=== PATIENT | female | born 1975 | race Caucasian/White ===

== ENCOUNTER 2017-02-25 19:30 | Emergency (ER) | payer BC, MEDICARE ==
[2017-02-25 20:07] VITALS: PULSE 122; O2SAT 97
[2017-02-25 20:15] LABS: Amphetamine,Urine NEG. (NEGATIVE); Barbiturate,Urine NEG. (NEGATIVE); Benzodiazepine,Urine NEG. (NEGATIVE); Cocaine,Urine NEG. (NEGATIVE); Methadone,Urine NEG. (NEGATIVE); Opiate,Urine NEG. (NEGATIVE); PCP,Urine NEG. (NEGATIVE); THC,Urine NEG. (NEGATIVE)
[2017-02-25 20:27] LABS: BASOPHIL % 0.3 % (0.0-0.4); Basophil (Absolute #) 0.02 (0-0.4); Eosinophil % 0.9 % (0.00-5.0); Eosinophil (Absolute #) 0.07 (0-0.5); Granulocyte Absolute (ANC) 4.76 (1.4-6.9); Granulocytes % 60.5 % (36.0-66.0); Hematocrit 44.3 % (35-47); Hemoglobin 14.6 gm/dl (12.0-16.0); Mean Cell Volume 87.9 fl (78-100); Mean Platelet Volume 10.2 fl (6-9.5); Monocyte (Absolute #) 0.81 (0.0-1.3); Monocytes % 10.3 % (0.0-12.0); Platelet Count 290 K/mm3 (150-450); Red Blood Count 5.04 M/mm3 (4.1-5.4); Red Cell Distribution Width 14.4 % (11.5-14.0); White Blood Count 7.9 K/mm3 (4.0-10.5)
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
[2017-02-25 20:58] LABS: ALBUMIN 4.5 g/dL (3.4-5.0); ALKALINE PHOSPHATASE 47 U/L (46-116); ANION GAP 12.8 MEQ/L (5-15); BLOOD UREA NITROGEN 30 mg/dL (9-20); CHLORIDE 103 mEq/L (98-107); Calcium 9.7 mg/dL (8.5-10.1); Carbon Dioxide 25.6 mEq/L (21-32); Creatinine 1 1.59 mg/dl (0.55-1.30); EST GLOMERULAR FILTRATION RATE 38 ML/MIN; ETHYL ALCOHOL < 0.010 % (0.00-0.01); Glucose 111 MG/DL (70-110); Potassium 3.5 mEq/L (3.5-5.1); SGOT/AST 20 U/L (15-37); SGPT/ALT 27 U/L (12-78); SODIUM 138 mEq/L (136-145); Total Protein 8.3 gm/dL (6.4-8.2)
[2017-02-25 20:59] LABS: ACETAMINOPHEN < 2.0 ug/ml (10-30)
[2017-02-25 22:14] VITALS: BP 135/86
== END 2017-02-25 22:19 | disposition home or self-care (01) ==
LOC: ED 19:30
DX: F43.20 Adjustment disorder, unspecified (principal); F20.9 Schizophrenia, unspecified; N28.9 Disorder of kidney and ureter, unspecified; Z72.0 Tobacco use; F41.8 Other specified anxiety disorders; F31.9 Bipolar disorder, unspecified; E03.9 Hypothyroidism, unspecified; K21.9 Gastro-esophageal reflux disease without esophagitis
CPT/HCPCS: 36415; 80053; 80307; 84703; 85025; 99284; G0481

== ENCOUNTER 2017-05-15 11:11 | Observation (INO) | payer MEDICARE ==
[2017-05-15] MEDS ORDERED: TYLENOL 325 MG PO PRN (12:14)
[2017-05-15] MEDS ORDERED: MORPHINE SULFATE 2 MG INJ IV PRN (12:14)
[2017-05-15] MEDS ORDERED: Sodium Chloride 0.9% 1000 ML 1,000 ML IV STA (12:14)
--- NOTE | 2017-05-15 12:14 | PCM.HP.ADD ---
Addendum to History & Physical - History & Physical Addendum Addendum to History & Physical: This certifies that the History & Physical in the electronic chart reflects the current health status of the patient. If there are changes in the H&P these changes/exceptions are listed as follows.
[2017-05-15] MEDS ORDERED: LASIX 20 MG PO PRN (13:17)
[2017-05-15 13:24] LABS: Basophil (Absolute #) 0 (0-0.4); Eosinophil (Absolute #) 0.05 (0-0.5); Granulocyte Absolute (ANC) 3.66 (1.4-6.9); Granulocytes % 69.5 % (36.0-66.0); Hematocrit 46.7 % (35-47); Hemoglobin 15.5 gm/dl (12.0-16.0); Lymphocyte (Absolute #) 1.06 (1.0-4.6); Lymphocytes % 20.2 % (24.0-44.0); Mean Cell Volume 88.8 fl (78-100); Mean Corpuscular Hemoglobin 29.5 pg (26-32); Mean Corpuscular Hgb Concent. 33.2 g/dl (32-36); Mean Platelet Volume 10.1 fl (6-9.5); Monocyte (Absolute #) 0.49 (0.0-1.3); Monocytes % 9.3 % (0.0-12.0); Platelet Count 274 K/mm3 (150-450); Red Blood Count 5.26 M/mm3 (4.1-5.4); Red Cell Distribution Width 14.6 % (11.5-14.0); White Blood Count 5.3 K/mm3 (4.0-10.5)
[2017-05-15] MEDS ORDERED: ATARAX 25 MG PO PRN (13:25)
[2017-05-15] MEDS ORDERED: MEDICATION INTERVENTION PO SCH (13:30)
[2017-05-15 13:51] LABS: ALBUMIN 4.7 g/dL (3.5-5.0); BILIRUBIN,TOTAL 0.4 mg/dL (0.2-1.3); Calcium 10.2 mg/dL (8.4-10.2); Creatinine 1 1.1 mg/dL (0.52-1.04); Total Protein 7.7 g/dL (6.3-8.2)
[2017-05-15] MEDS: Zofran 4 MG/2 ML VIAL IV PRN (13:54)
[2017-05-15 13:57] LABS: Appearance CLEAR (CLEAR); Bilirubin NEGATIVE (NEGATIVE); Glucose NEGATIVE (NEGATIVE); Ketones NEGATIVE (NEGATIVE); Leukocyte Esterase TRACE (NEGATIVE); Nitrite NEGATIVE (NEGATIVE); Protein,Urine Dip NEGATIVE (Negative); Urobilinogen NORMAL mg/dL (0-1)
[2017-05-15 13:58] LABS: Bacteria FEW /HPF (NEGATIVE); Epithelial Cells FEW /HPF (FEW); WBC 0-2 /HPF (0-5)
[2017-05-15] MEDS: lamICTAL 100MG TABLET PO SCH (16:29)
--- NOTE | 2017-05-15 16:42 | XRAY ---
Indication: Right upper quadrant pain. Two-dimensional gallbladder sonogram performed. Comparison: October 19, 2014. Gallbladder normally distended without gallstones, wall thickening, or pericholecystic fluid. Common bile duct measures 5.3 mm. No intrahepatic biliary distention. Remaining visualized portions of the liver, pancreas, and right kidney appears sonographically unremarkable. Right kidney measures 10.8 cm in length. No ascites. Impression: Stable negative gallbladder sonogram.
--- NOTE | 2017-05-15 16:45 | XRAY ---
Indication: Pain. Two-dimensional transabdominal pelvic ultrasound was performed. Comparison: None Urinary bladder not fully distended producing suboptimal acoustic window. Uterus is anteverted measuring 9.9 x 5.3 x 5.3 cm. No focal solid/cystic mass. Endometrial stripe is thickened measuring 1.35 cm. No endometrial mass or fluid collection. Right ovary measures 3.5 x 2.0 x 2.3 cm and the left measures 3.6 x 2.6 x 3.5 cm. Normal perfusion bilaterally. 2.4 cm left adnexal cystic mass adjacent to the uterine fundus, possible paraovarian cyst. No solid adnexal mass or free fluid. Impression: 1. 2.4 cm left parovarian cyst. 2. Thickened endometrial stripe that should be correlated with patient's menstrual cycle. 3. Remaining transabdominal pelvic sonogram is negative.
[2017-05-15] MEDS: Protonix 40MG Tablet PO SCH (16:50)
[2017-05-15] MEDS: VITAMIN D PO SCH (16:51)
[2017-05-15] MEDS ORDERED: QUETIAPINE FUMARATE 800 MG PO SCH (22:00)
[2017-05-15] MEDS ORDERED: SYNTHROID 125 MCG PO SCH (22:00)
[2017-05-15] MEDS ORDERED: Tricor 145 MG PO SCH (22:00)
[2017-05-15] MEDS ORDERED: lamICTAL 100MG TABLET PO SCH (22:00)
[2017-05-15] MEDS ORDERED: PATIENT OWN MEDICATION PO SCH (22:00)
[2017-05-15] MEDS ORDERED: SYNTHROID 100 MCG PO SCH (22:00)
[2017-05-16] MEDS: Zofran 4 MG/2 ML VIAL IV PRN ×2 (04:06→10:44)
--- NOTE | 2017-05-16 08:43 | XRAY ---
Indication: Nausea and vomiting 2 weeks. Intermittent constipation and diarrhea. Multiple contiguous axial images obtained through the abdomen and pelvis using 80 cc Isovue 370 contrast. Oral contrast also given. Comparison: None Lung bases demonstrates minimal bibasilar atelectasis/scarring. No infiltrate or effusion. Heart is not enlarged. Stomach is distended with contrast with little contrast in the duodenum. Noncontrasted bowel loops appear nonobstructed. Normal appendix. 2.3 cm left ovary cyst with small pelvic free fluid presumed from a ruptured/leaking cyst. No free air. 1 cm right mid renal cyst. Remaining liver, gallbladder, pancreas, spleen, adrenal glands, kidneys, ureters, bladder, uterus, and aorta appear unremarkable. No pathologic retroperitoneal lymphadenopathy. Osseous structures intact. Impression: 1. 2.3 similar left ovary cyst. Small free fluid presumed physiologic from rupture/leaking cyst. 2. 1 cm right renal cyst. 3. Remaining CT abdomen/pelvis with contrast exam is negative. Comment: Preliminary interpretation was made by [facility]. No discrepancy. CT DI 23.63
[2017-05-16] MEDS: Protonix 40MG Tablet PO SCH (09:06)
[2017-05-16] MEDS: lamICTAL 100MG TABLET PO SCH (09:06)
[2017-05-16] MEDS: VITAMIN D PO SCH (09:06)
[2017-05-16] MEDS ORDERED: NON-FORMULARY ITEM (Omeprazole 20 Mg [Prilosec 20 Mg] 40 MG) PO SCH (10:00)
[2017-05-16] MEDS ORDERED: Sodium Chloride 0.9% 10 ML FLUSH Syringe IV PRN (10:16)
[2017-05-16 11:40] VITALS: BP 107/64; PULSE 112; O2SAT 98
--- NOTE | 2017-05-16 11:47 | PCM.DS ---
Discharge Summary Date of Admission: 05/15/17 11:17 Admitting Physician: KARMEN NAVARRO Primary Care Provider: KARMEN NAVARRO Allergies Allergies Penicillins Allergy (Verified 05/15/17 11:42) Vomiting Hospital Summary - Hospital Course Hospital Course: Chief Complaint Diagnosis abdominal pain Allergies Allergy/AdvReac Type Severity Reaction Status Date / Time Penicillins Allergy Vomiting Verified 05/15/17 11:42 Vital Signs (Last 24 hours) Temp Pulse Resp BP Pulse Ox 05/16/17 11:39 98.2 F 112 H 18 107/64 98 05/16/17 07:21 98.2 F 101 H 18 87/57 91 L 05/16/17 04:00 97.9 F 92 H 18 111/64 97 05/16/17 00:00 97.9 F 99 H 17 104/64 97 05/15/17 20:00 98.1 F 92 H 18 113/67 96 05/15/17 16:00 98.4 F 100 H 18 117/72 100 05/15/17 12:23 98.8 F 114 H 18 124/70 99 05/15/17 11:55 98.8 F 114 H 18 124/70 99 Home Medications Medication Instructions Recorded Confirmed Last Taken Type Cholecalciferol (Vitamin D3) 5,000 unit PO DAILY 05/15/17 05/15/17 05/14/17 History [Vitamin D] Fenofibrate Nanocrystallized 145 mg PO QHS 05/15/17 05/15/17 05/14/17 History [Fenofibrate] Furosemide 20 mg [Lasix 20 20 mg PO DAILY PRN PRN 05/15/17 05/15/17 05/12/17 History mg] Hydroxyzine Pamoate [Hydroxyzine 50 mg PO BID PRN PRN 05/15/17 05/15/17 History Pamoate] Lamotrigine 100 mg [lamICTAL 150 mg PO QHS 05/15/17 05/15/17 05/14/17 History 100MG TABLET] Lamotrigine 100 mg [lamICTAL 200 mg PO QAM 05/15/17 05/15/17 05/14/17 History 100MG TABLET] Levothyroxine Sodium 100 Mcg 125 mcg PO QHS 05/15/17 05/15/17 05/14/17 History [Synthroid 100 Mcg] Omeprazole 20 MG [Prilosec 20 mg] 40 mg PO QAM 05/15/17 05/15/17 05/14/17 History Quetiapine Fumarate [Seroquel Xr] 800 mg PO QHS 05/15/17 05/15/17 05/14/17 History Current Medications Generic Name Dose Route Start Last Admin Trade Name Freq PRN Reason Stop Dose Admin Acetaminophen 325 mg 05/15/17 12:14 05/16/17 04:15 Tylenol 325 Mg PO 06/14/17 12:13 325 mg Q4H PRN PRN Administration PAIN, FEVER, HEADACHE Cholecalciferol 5,000 unit 05/15/17 14:00 05/16/17 09:06 Vitamin D PO 06/14/17 13:59 5,000 unit DAILY ROYCE Administration Fenofibrate 145 mg 05/15/17 22:00 05/15/17 20:25 Tricor 145 Mg PO 06/14/17 21:59 145 mg QHS ROYCE Administration Furosemide 20 mg 05/15/17 13:17 Lasix 20 Mg PO 06/14/17 13:16 DAILY PRN PRN swelling Hydroxyzine HCl 50 mg 05/15/17 13:25 05/15/17 20:26 Atarax 25 Mg PO 06/14/17 13:24 50 mg BID PRN PRN Administration ANXIETY Lamotrigine 150 mg 05/15/17 22:00 05/15/17 20:23 Lamictal 100mg Tablet PO 06/14/17 21:59 150 mg QHS ROYCE Administration Lamotrigine 200 mg 05/15/17 14:00 05/16/17 09:06 Lamictal 100mg Tablet PO 06/14/17 13:59 200 mg QAM ROYCE Administration Levothyroxine Sodium 125 mcg 05/15/17 22:00 05/15/17 20:24 Synthroid 125 Mcg PO 06/14/17 21:59 125 mcg HS ROYCE Administration Morphine Sulfate 2 mg 05/15/17 12:14 05/16/17 10:43 Morphine Sulfate 2 Mg Inj IV 05/20/17 12:13 2 mg Q2H PRN PRN Administration PAIN Ondansetron HCl 4 mg 05/15/17 12:14 05/16/17 10:44 Zofran 4 Mg/2 Ml Vial IV 06/14/17 12:13 4 mg Q4H PRN PRN Administration NAUSEA/VOMITING Pantoprazole Sodium 40 mg 05/15/17 14:00 05/16/17 09:06 Protonix 40mg Tablet PO 06/14/17 13:59 40 mg QAM ROYCE Administration Quetiapine Er 400mg 2 each 05/15/17 22:00 05/15/17 20:24 Tablet PO 06/14/17 21:59 2 each QPM ROYCE Administration Sodium Chloride 10 ml 05/16/17 14:00 05/16/17 11:06 Sodium Chloride 0.9% 10 Ml Flush Syringe IV 06/15/17 13:59 10 ml Q8HT ROYCE Administration Sodium Chloride 10 ml 05/16/17 10:16 Sodium Chloride 0.9% 10 Ml Flush Syringe IV 06/15/17 10:15 PRN PRN FLUSH Discontinued Medications Generic Name Dose Route Start Last Admin Trade Name Freq PRN Reason Stop Dose Admin Sodium Chloride 1,000 mls @ 999 mls/hr 05/15/17 12:14 05/15/17 13:54 Sodium Chloride 0.9% 1000 Ml IV 05/15/17 13:14 999 mls/hr .Q1H1M STA Administration Intake & Output (Last 24 hours) 05/13/17 05/14/17 05/15/17 05/16/17 11:59 11:59 11:59 11:59 Intake Total 2060 Output Total 100 Balance 1960 Weight 90.1 kg Laboratory Results (Last 24 hours) 05/15/17 05/15/17 05/15/17 13:00 13:00 13:00 WBC 5.3 RBC 5.26 Hgb 15.5 Hct 46.7 MCV 88.8 MCH 29.5 MCHC 33.2 RDW 14.6 H Plt Count 274 MPV 10.1 H Gran % 69.5 H Eos # (Auto) 0.05 Absolute Lymphs (auto) 1.06 Absolute Monos (auto) 0.49 Lymphocytes % 20.2 L Monocytes % 9.3 Eosinophils % 1.0 Basophils % 0.0 Absolute Granulocytes 3.66 Basophils # 0 Sodium 142 Potassium 4.0 Chloride 104 Carbon Dioxide 24 Anion Gap 18.0 H BUN 23 H Creatinine 1.10 H Estimated GFR 58.2 Glucose 98 Lactic Acid 0.8 Calcium 10.2 Total Bilirubin 0.40 AST 37 H ALT 34 Alkaline Phosphatase 32 L Serum Total Protein 7.7 Albumin 4.7 Amylase 71 Lipase 60 Ur Collection Type Urine Color Urine Appearance Urine pH Ur Specific [place] Urine Protein Urine Ketones Urine Blood Urine Nitrite Urine Bilirubin Urine Urobilinogen Ur Leukocyte Esterase Urine Microscopic RBC Urine Microscopic WBC Ur Epithelial Cells Urine Bacteria Urine Glucose Specimen Received 05/15/17 12:18 WBC RBC Hgb Hct MCV MCH MCHC RDW Plt Count MPV Gran % Eos # (Auto) Absolute Lymphs (auto) Absolute Monos (auto) Lymphocytes % Monocytes % Eosinophils % Basophils % Absolute Granulocytes Basophils # Sodium Potassium Chloride Carbon Dioxide Anion Gap BUN Creatinine Estimated GFR Glucose Lactic Acid Calcium Total Bilirubin AST ALT Alkaline Phosphatase Serum Total Protein Albumin Amylase Lipase Ur Collection Type CLEAN CATCH Urine Color YELLOW Urine Appearance CLEAR Urine pH 7.0 Ur Specific [place] 1.010 Urine Protein NEGATIVE Urine Ketones NEGATIVE Urine Blood 5-10 Urine Nitrite NEGATIVE Urine Bilirubin NEGATIVE Urine Urobilinogen NORMAL Ur Leukocyte Esterase TRACE Urine Microscopic RBC 0-2 Urine Microscopic WBC 0-2 Ur Epithelial Cells FEW Urine Bacteria FEW Urine Glucose NEGATIVE Specimen Received 05/15/17 1300 Orders (Last 24 hours) Category Date Time Status Up Ad Ani TOLERATED Activity 05/15/17 12:15 Active Code Status Order ROUTINE Care 05/15/17 12:[address] in Observation ROUTINE Care 05/15/17 12:14 Active NPO Diet 05/15/17 12:14 Completed Regular Diet Diet 05/15/17 Dinner Active ABDOMEN AND PELVIS W CONTRAST [CT] Routine Exams 05/15/17 18:11 Completed GALLBLADDER [US] Stat Exams 05/15/17 16:30 Completed PELVIC [US] Stat Exams 05/15/17 16:30 Completed AMYLASE Stat Lab 05/15/17 13:00 Completed CBC W DIFF Stat Lab 05/15/17 13:00 Completed CMP Stat Lab 05/15/17 13:00 Completed LIPASE Stat Lab 05/15/17 13:00 Completed Lactic Acid Stat Lab 05/15/17 13:00 Completed UA W/ MICROSCOPIC Stat Lab 05/15/17 12:18 Completed Acetaminophen 325 mg [Tylenol 325 mg] Med 05/15/17 12:14 Active 325 mg PO Q4H PRN PRN Cholecalciferol (Vitamin D3) [Vitamin D] Med 05/15/17 14:00 Active 5,000 unit PO DAILY Fenofibrate,Micronized 145 mg* [Tricor 145 MG] Med 05/15/17 22:00 Active 145 mg PO QHS Furosemide 20 mg [Lasix 20 mg] Med 05/15/17 13:17 Active 20 mg PO DAILY PRN PRN Hydroxyzine HCl 25 mg [Atarax 25 mg] Med 05/15/17 13:25 Active 50 mg PO BID PRN PRN Lamotrigine 100 mg [lamICTAL 100MG TABLET] Med 05/15/17 22:00 Active 150 mg PO QHS Lamotrigine 100 mg [lamICTAL 100MG TABLET] Med 05/15/17 14:00 Active 200 mg PO QAM Levothyroxine Sodium 125 Mcg [Synthroid 125 Mcg] Med 05/15/17 22:00 Active 125 mcg PO HS Medication Intervention Med 05/15/17 13:30 Discontinued 1 each PO .RN TO CHECK ON Morphine Sulfate 2 mg Inj Med 05/15/17 12:14 Active 2 mg IV Q2H PRN PRN NaCl 0.9% 10 ML FLUSH [Sodium Chloride 0.9% 10 ML FLUSH Med 05/16/17 10:16 Active Syringe] 10 ml IV PRN PRN NaCl 0.9% 10 ML FLUSH [Sodium Chloride 0.9% 10 ML FLUSH Med 05/16/17 14:00 Active Syringe] 10 ml IV Q8HT NaCl 0.9% 1000 ml [Sodium Chloride 0.9% 1000 ML] 1,000 Med 05/15/17 12:14 Discontinued ml IV 999 mls/hr Ondansetron HCl 4 mg/2 ml [Zofran 4 MG/2 ML VIAL] Med 05/15/17 12:14 Active 4 mg IV Q4H PRN PRN PANTOPRAZOLE 40 mg Tablet [Protonix 40MG Tablet] Med 05/15/17 14:00 Active 40 mg PO QAM Patient Own Med [Patient Own Medication] Med 05/15/17 22:00 Active 2 each PO QPM Patient Care Notes (Last 24 hours) 05/16/17 10:58 Nursing Note by Rossana Lino morphine and zofran given for abd pain and nausea (see APR). Initialized on 05/16/17 10:58 - END OF NOTE 05/16/17 09:41 Nursing Note by Rossana Lino see medsurg assessment, pt has had loose stool x 2 , incontinent x 1 in bed. pt denies other c/o at this time, pt made aware she has pain med available prn. Dr. Navarro will make rounds today. Addendum entered by Rossana Lino 05/16/17 09:47: pt has prn lasix order on APR, pt states she takes it about 3 times a week and took it on Sunday, denies need for it today, pt has slight ankle edama bilat. Initialized on 05/16/17 09:41 - END OF NOTE 05/15/17 20:25 Nursing Note by Jasmin Kwan Called results of CT abdomen, ultrasound pelvis, and ultrasound of gallbladder to Dr. Navarro. Regular diet order received. Initialized on 05/15/17 20:25 - END OF NOTE - Vitals & Intake/Output Vital Signs: Vital Signs Temperature 98.2 F 05/16/17 11:39 Pulse Rate 112 H 05/16/17 11:39 Respiratory Rate 18 05/16/17 11:39 Blood Pressure 107/64 05/16/17 11:39 O2 Sat by Pulse Oximetry 98 05/16/17 11:39 Intake & Output: Intake & Output 05/13/17 05/14/17 05/15/17 05/16/17 11:59 11:59 11:59 11:59 Intake Total 2059 Output Total 100 Balance 1960 Weight 90.1 kg - Lab Result Diagrams: 05/15/17 13:00 05/15/17 13:00 Lab Results-Last 24 Hrs: Lab Results-Last 24 Hours 05/15/17 05/15/17 05/15/17 Range/Units 12:18 13:00 13:00 WBC 5.3 (4.0-10.5) K/mm3 RBC 5.26 (4.1-5.4) M/mm3 Hgb 15.5 (12.0-16.0) gm/dl Hct 46.7 (35-47) % MCV 88.8 (78-100) fl MCH 29.5 (26-32) pg MCHC 33.2 (32-36) g/dl RDW 14.6 H (11.5-14.0) % Plt Count 274 (150-450) K/mm3 MPV 10.1 H (6-9.5) fl Gran % 69.5 H (36.0-66.0) % Eos # (Auto) 0.05 (0-0.5) Absolute Lymphs (auto) 1.06 (1.0-4.6) Absolute Monos (auto) 0.49 (0.0-1.3) Lymphocytes % 20.2 L (24.0-44.0) % Monocytes % 9.3 (0.0-12.0) % Eosinophils % 1.0 (0.00-5.0) % Basophils % 0.0 (0.0-0.4) % Absolute Granulocytes 3.66 (1.4-6.9) Basophils # 0 (0-0.4) Sodium (137-145) mmol/L Potassium (3.5-5.1) mmol/L Chloride (98-107) mmol/L Carbon Dioxide (22-30) mmol/L Anion Gap (5-15) MEQ/L BUN (7-17) mg/dL Creatinine (0.52-1.04) mg/dL Estimated GFR ML/MIN Glucose (74-106) mg/dL Lactic Acid 0.8 (0.4-2.0) Calcium (8.4-10.2) mg/dL Total Bilirubin (0.2-1.3) mg/dL AST (14-36) U/L ALT (0-35) U/L Alkaline Phosphatase (38-126) U/L Serum Total Protein (6.3-8.2) g/dL Albumin (3.5-5.0) g/dL Amylase (30-110) U/L Lipase (23-300) U/L Ur Collection Type CLEAN CATCH Urine Color YELLOW (YELLOW) Urine Appearance CLEAR (CLEAR) Urine pH 7.0 (5-6) Ur Specific [place] 1.010 (1.005-1.025) Urine Protein NEGATIVE (Negative) Urine Ketones NEGATIVE (NEGATIVE) Urine Blood 5-10 (0-5) Benja/ul Urine Nitrite NEGATIVE (NEGATIVE) Urine Bilirubin NEGATIVE (NEGATIVE) Urine Urobilinogen NORMAL (0-1) mg/dL Ur Leukocyte Esterase TRACE (NEGATIVE) Urine Microscopic RBC 0-2 (0-2) /HPF Urine Microscopic WBC 0-2 (0-5) /HPF Ur Epithelial Cells FEW (FEW) /HPF Urine Bacteria FEW (NEGATIVE) /HPF Urine Glucose NEGATIVE (NEGATIVE) mg/dL Specimen Received 05/15/17 1300 05/15/17 Range/Units 13:00 WBC (4.0-10.5) K/mm3 RBC (4.1-5.4) M/mm3 Hgb (12.0-16.0) gm/dl Hct (35-47) % MCV (78-100) fl MCH (26-32) pg MCHC (32-36) g/dl RDW (11.5-14.0) % Plt Count (150-450) K/mm3 MPV (6-9.5) fl Gran % (36.0-66.0) % Eos # (Auto) (0-0.5) Absolute Lymphs (auto) (1.0-4.6) Absolute Monos (auto) (0.0-1.3) Lymphocytes % (24.0-44.0) % Monocytes % (0.0-12.0) % Eosinophils % (0.00-5.0) % Basophils % (0.0-0.4) % Absolute Granulocytes (1.4-6.9) Basophils # (0-0.4) Sodium 142 (137-145) mmol/L Potassium 4.0 (3.5-5.1) mmol/L Chloride 104 (98-107) mmol/L Carbon Dioxide 24 (22-30) mmol/L Anion Gap 18.0 H (5-15) MEQ/L BUN 23 H (7-17) mg/dL Creatinine 1.10 H (0.52-1.04) mg/dL Estimated GFR 58.2 ML/MIN Glucose 98 (74-106) mg/dL Lactic Acid (0.4-2.0) Calcium 10.2 (8.4-10.2) mg/dL Total Bilirubin 0.40 (0.2-1.3) mg/dL AST 37 H (14-36) U/L ALT 34 (0-35) U/L Alkaline Phosphatase 32 L (38-126) U/L Serum Total Protein 7.7 (6.3-8.2) g/dL Albumin 4.7 (3.5-5.0) g/dL Amylase 71 (30-110) U/L Lipase 60 (23-300) U/L Ur Collection Type Urine Color (YELLOW) Urine Appearance (CLEAR) Urine pH (5-6) Ur Specific [place] (1.005-1.025) Urine Protein (Negative) Urine Ketones (NEGATIVE) Urine Blood (0-5) Benja/ul Urine Nitrite (NEGATIVE) Urine Bilirubin (NEGATIVE) Urine Urobilinogen (0-1) mg/dL Ur Leukocyte Esterase (NEGATIVE) Urine Microscopic RBC (0-2) /HPF Urine Microscopic WBC (0-5) /HPF Ur Epithelial Cells (FEW) /HPF Urine Bacteria (NEGATIVE) /HPF Urine Glucose (NEGATIVE) mg/dL Specimen Received - Radiology Exams Ordered Rad Exams-Entire Visit: Radiology Procedures Category Date Time Status ABDOMEN AND PELVIS W CONTRAST [CT] Routine Exams 05/15/17 18:11 Completed GALLBLADDER [US] Stat Exams 05/15/17 16:30 Completed PELVIC [US] Stat Exams 05/15/17 16:30 Completed Discharge Exam General Appearance: no apparent distress, alert Neurologic Exam: alert, oriented x 3, cooperative, normal mood/affect, nml cerebellar function, sensation nml, No motor deficits Skin Exam: normal color, warm, dry Eye Exam: PERRL, EOMI, eyes nml inspection Ears, Nose, Throat Exam: normal ENT inspection, pharynx normal, moist mucous membranes Neck Exam: normal inspection, non-tender, supple, full range of motion Respiratory Exam: normal breath sounds, lungs clear, No respiratory distress Cardiovascular Exam: regular rate/rhythm, normal heart sounds Gastrointestinal/Abdomen Exam: soft, No tenderness, No mass Extremity Exam: normal inspection, normal range of motion Back Exam: normal inspection, normal range of motion, No CVA tenderness, No vertebral tenderness Pelvic Exam: deferred Rectal Exam: deferred Final Diagnosis/Problem List - Final Discharge Diagnosis/Problem (1) Ovarian cyst rupture Current Visit: Yes Status: Acute Priority: High (2) Abdominal pain Current Visit: Yes Status: Resolved - Discharge Discharge Date: 05/16/17 Disposition: Home, Self-Care Condition: Stable Prescriptions: Continue Cholecalciferol (Vitamin D3) [Vitamin D] 5,000 unit PO DAILY Hydroxyzine Pamoate 50 mg PO BID PRN PRN PRN Reason: Anxiety Quetiapine Fumarate [Seroquel Xr] 800 mg PO QHS Lamotrigine 100 mg [lamICTAL 100MG TABLET] 200 mg PO QAM Lamotrigine 100 mg [lamICTAL 100MG TABLET] 150 mg PO QHS Furosemide 20 mg [Lasix 20 mg] 20 mg PO DAILY PRN PRN PRN Reason: swelling Fenofibrate Nanocrystallized [Fenofibrate] 145 mg PO QHS Omeprazole 20 MG [Prilosec 20 mg] 40 mg PO QAM Levothyroxine Sodium 100 Mcg [Synthroid 100 Mcg] 125 mcg PO QHS Follow up with: KARMEN NAVARRO MD [Primary Care Provider] - 1 Week KAELA REES [NON-STAFF PHY W/O PRIVILEGES] - 1 Week
[2017-05-16] MEDS ORDERED: Sodium Chloride 0.9% 10 ML FLUSH Syringe IV SCH (14:00)
== END 2017-05-16 13:15 | disposition home or self-care (01) ==
LOC: MED SURG 11:17
PROVIDERS: ADMIT General Practice; ATTEND General Practice
DX: N83.209 Unspecified ovarian cyst, unspecified side (principal); R10.9 Unspecified abdominal pain; F31.9 Bipolar disorder, unspecified; Z80.1 Family history of malignant neoplasm of trachea, bronchus and lung; Z72.0 Tobacco use
CPT/HCPCS: 36415; 74177; 76705; 76856; 80053; 81000; 82150; 83605; 83690; 85025; G0378; J2270; J2405; A9270-GY

== ENCOUNTER 2017-05-23 04:31 | Emergency (ER) | payer MEDICARE ==
[2017-05-23] MEDS ORDERED: Sodium Chloride 0.9% 1000 ML 1,000 ML IV STA ×2 (04:58→06:22)
[2017-05-23] MEDS ORDERED: EPINEPHRINE 1MG/ML AMP IM ONE (04:59)
[2017-05-23] MEDS ORDERED: solu-MEDROL 125 MG IV ONE (04:59)
[2017-05-23] MEDS ORDERED: Pepcid 20 MG VIAL IV ONE ×2 (04:59→05:04)
[2017-05-23] MEDS ORDERED: BENADRYL 50 MG/ML IV ONE (04:59)
[2017-05-23] MEDS ORDERED: BENADRYL 50 MG/ML ONE (05:04)
[2017-05-23] MEDS ORDERED: EPINEPHRINE 1MG/ML AMP ONE (05:05)
[2017-05-23] MEDS ORDERED: solu-MEDROL 125 MG ONE (05:05)
[2017-05-23] MEDS ORDERED: Sodium Chloride 0.9% 1000 ML 1,000 ML ONE ×2 (05:05→06:15)
--- NOTE | 2017-05-23 05:12 | ERPHSYRPT ---
- History of Present Illness Time Seen by Provider: 05/23/17 04:55 Source: patient Exam Limitations: clinical condition Patient Subjective Stated Complaint: pt states she was sick last week in this hospital for cyst on ovary; stayed one night; discharged on sunday; s/s worse throughout the weekend; this am woke up covered in rash and nauseated. Triage Nursing Assessment: pt a&o x3; skin p, w, & d; large hives noted on both legs; pt verbalizes rash on ingrid-area; buttocks; abdomen; and states she feels like it is in her mouth but denies any difficulty swallowing or shortness of breath. Physician History: PATIENT WITH A HISTORY OF BIPOLAR DISORDER, SCHIZOPHRENIA AWAKENED FORM SLEEP WITH GENERALIZED RASH ASSOCIATED WITH ITCHING, HAS UNKNOWN EXPOSURE. DENIES DIFFICULTY BREATHING OR SWALLOWING. Timing/Duration: today Quality: itchy, painful Severity: severe Location: generalized Possible Causes: no cause identified Associated Symptoms: hives Allergies/Adverse Reactions: Penicillins Allergy (Verified 05/23/17 05:02) Vomiting Home Medications: Cholecalciferol (Vitamin D3) [Vitamin D] 5,000 unit PO DAILY 05/15/17 [ History] Fenofibrate Nanocrystallized [Fenofibrate] 145 mg PO QHS 05/15/17 [History] Furosemide 20 mg [Lasix 20 mg] 20 mg PO DAILY PRN PRN 05/15/17 [History] Hydroxyzine Pamoate 25 mg PO PRN 05/15/17 [History] Lamotrigine 100 mg [lamICTAL 100MG TABLET] 150 mg PO QHS 05/15/17 [History ] Lamotrigine 100 mg [lamICTAL 100MG TABLET] 200 mg PO QAM 05/15/17 [History ] Levothyroxine Sodium 100 Mcg [Synthroid 100 Mcg] 125 mcg PO QHS 05/15/17 [ History] Omeprazole 20 MG [Prilosec 20 mg] 40 mg PO QAM 05/15/17 [History] Quetiapine Fumarate [Seroquel Xr] 800 mg PO QHS 05/15/17 [History] Hx Tetanus, Diphtheria Vaccination/Date Given: Yes Hx Influenza Vaccination/Date Given: Yes Hx Pneumococcal Vaccination/Date Given: No Immunizations Up to Date: No - Review of Systems Constitutional: No Fever, No Chills Eyes: No Symptoms Ears, Nose, & Throat: No Symptoms Respiratory: No Symptoms, No Cough, No Dyspnea Cardiac: No Symptoms, No Chest Pain, No Edema, No Syncope Abdominal/Gastrointestinal: No Symptoms, No Abdominal Pain, No Nausea, No Vomiting, No Diarrhea Genitourinary Symptoms: No Symptoms, No Dysuria Musculoskeletal: No Back Pain, No Neck Pain Skin: Pruritis, No Rash Neurological: No Symptoms, No Dizziness, No Focal Weakness, No Sensory Changes Psychological: No Symptoms Endocrine: No Symptoms All Other Systems: Reviewed and Negative - Past Medical History Pertinent Past Medical History: Yes Cardiac History: High Cholesterol Endocrine Medical History: Hypothyroidism GI Medical History: GERD History: Renal Disease Psycho-Social History: Anxiety, Bipolar, Depression Other Medical History: schizophrenia kidney disease - Past Surgical History Past Surgical History: Yes Gastrointestinal: Hemorrhoidectomy Female Surgical History: Section, Tubal Ligation - Social History Smoking Status: Current some day smoker How long have you smoked: 25 Exposure to second hand smoke: No Drug Use: none Patient Lives Alone: No - Female History Hx Last Menstrual Period: 04/26/2017 Hx Now: No - Nursing Vital Signs Nursing Vital Signs: Initial Vital Signs Temperature 98.2 F 05/23/17 04:40 Pulse Rate 115 H 05/23/17 04:40 Respiratory Rate 22 05/23/17 04:40 Blood Pressure 115/85 05/23/17 04:40 O2 Sat by Pulse Oximetry 100 05/23/17 04:40 Pain Scale Pain Intensity 0 - Physical Exam General Appearance: mild distress Eye Exam: PERRL/EOMI, eyes nml inspection Ears, Nose, Throat Exam: normal ENT inspection, pharynx normal, moist mucous membranes, other (POSTERIOR PHARYNX WITHOUT ANGIOEDEMA) Neck Exam: normal inspection, non-tender, supple, full range of motion Respiratory Exam: normal breath sounds, lungs clear, No respiratory distress Cardiovascular Exam: regular rate/rhythm, normal heart sounds, tachycardia Gastrointestinal/Abdomen Exam: soft, mass, No tenderness Back Exam: normal inspection, normal range of motion, No CVA tenderness, No vertebral tenderness Extremity Exam: normal inspection, normal range of motion Neurologic Exam: alert, oriented x 3, cooperative, normal mood/affect, sensation nml, No motor deficits Skin Exam: normal color, warm, dry, rash, other (GENERALIZED HIVES OVER ALL EXTREMITIES, NECK AND SCALP) SpO2: 100 Oxygen Delivery: Room Air Ordered Tests: Active Orders 24 hr Category Date Time Status CBC W DIFF Stat Lab 05/23/17 05:15 Completed CMP Stat Lab 05/23/17 05:15 Completed CULTURE,URINE Stat Lab 05/23/17 05:15 Received Manual Differential NC Stat Lab 05/23/17 05:15 Completed UA W/ MICROSCOPIC Stat Lab 05/23/17 05:15 Completed Medication Summary Generic Name Dose Route Start Last Admin Trade Name Freq PRN Reason Stop Dose Admin Sodium Chloride 1,000 mls @ 999 mls/hr 05/23/17 06:22 05/23/17 06:25 Sodium Chloride 0.9% 1000 Ml IV 05/23/17 07:22 999 mls/hr .Q1H1M STA Administration Discontinued Medications Generic Name Dose Route Start Last Admin Trade Name Freq PRN Reason Stop Dose Admin Diphenhydramine HCl 50 mg 05/23/17 04:59 05/23/17 05:17 Benadryl 50 Mg/Ml IV 05/23/17 05:00 50 mg STAT ONE Administration Diphenhydramine HCl Confirm 05/23/17 05:04 Benadryl 50 Mg/Ml Administered 05/23/17 05:05 Dose 50 mg .ROUTE .STK-MED ONE Epinephrine HCl 0.3 mg 05/23/17 04:59 05/23/17 05:18 Epinephrine 1mg/Ml Amp IM 05/23/17 05:00 0.3 mg STAT ONE Administration Epinephrine HCl Confirm 05/23/17 05:05 Epinephrine 1mg/Ml Amp Administered 05/23/17 05:06 Dose 1 mg .ROUTE .STK-MED ONE Famotidine 20 mg 05/23/17 04:59 05/23/17 05:21 Pepcid 20 Mg Vial IV 05/23/17 05:00 20 mg STAT ONE Administration Famotidine Confirm 05/23/17 05:04 Pepcid 20 Mg Vial Administered 05/23/17 05:05 Dose 20 mg IV .STK-MED ONE Sodium Chloride 1,000 mls @ 999 mls/hr 05/23/17 04:58 05/23/17 05:22 Sodium Chloride 0.9% 1000 Ml IV 04/18/18 05:58 999 mls/hr .Q1H1M STA Administration Sodium Chloride Confirm 05/23/17 05:05 Sodium Chloride 0.9% 1000 Ml Administered 05/23/17 05:06 Dose 1,000 mls @ ud .ROUTE .STK-MED ONE Sodium Chloride Confirm 05/23/17 06:15 Sodium Chloride 0.9% 1000 Ml Administered 05/23/17 06:16 Dose 1,000 mls @ ud .ROUTE .STK-MED ONE Methylprednisolone Sodium Succinate 125 mg 05/23/17 04:59 05/23/17 05:22 Solu-Medrol 125 Mg IV 05/23/17 05:00 125 mg STAT ONE Administration Methylprednisolone Sodium Succinate Confirm 05/23/17 05:05 Solu-Medrol 125 Mg Administered 05/23/17 05:06 Dose 125 mg .ROUTE .STK-MED ONE Trimethoprim/Sulfamethoxazole 1 tab 05/23/17 06:10 05/23/17 06:16 Bactrim Ds Tablet PO 05/23/17 06:11 1 tab STAT STA Administration Trimethoprim/Sulfamethoxazole Confirm 05/23/17 06:15 Bactrim Ds Tablet Administered 05/23/17 06:16 Dose 1 tab PO .STK-MED ONE Lab/Rad Data: Laboratory Result Diagrams 05/23/17 05:15 05/23/17 05:15 Laboratory Results 05/23/17 05/23/17 05/23/17 Range/Units 05:15 05:15 05:15 WBC 10.3 (4.0-10.5) K/mm3 RBC 5.17 (4.1-5.4) M/mm3 Hgb 15.2 (12.0-16.0) gm/dl Hct 44.9 (35-47) % MCV 86.8 (78-100) fl MCH 29.4 (26-32) pg MCHC 33.9 (32-36) g/dl RDW 14.4 H (11.5-14.0) % Plt Count 326 (150-450) K/mm3 MPV 9.6 H (6-9.5) fl Absolute Granulocytes 7.89 H (1.4-6.9) Segmented Neutrophils 76 H (36.0-66.0) % Lymphocytes (Manual) 20 L (24-44) % Monocytes (Manual) 4 (0.0-12.0) % Platelet Estimate NORMAL (NORMAL) RBC Morphology NORMAL Sodium 139 (137-145) mmol/L Potassium 3.7 (3.5-5.1) mmol/L Chloride 107 (98-107) mmol/L Carbon Dioxide 21 L (22-30) mmol/L Anion Gap 14.9 (5-15) MEQ/L BUN 11 (7-17) mg/dL Creatinine 0.98 (0.52-1.04) mg/dL Estimated GFR > 60.0 ML/MIN Glucose 106 (74-106) mg/dL Calcium 9.9 (8.4-10.2) mg/dL Total Bilirubin 0.20 (0.2-1.3) mg/dL AST 19 (14-36) U/L ALT 23 (0-35) U/L Alkaline Phosphatase 51 (38-126) U/L Serum Total Protein 7.0 (6.3-8.2) g/dL Albumin 4.1 (3.5-5.0) g/dL Ur Collection Type CLEAN CATCH Urine Color YELLOW (YELLOW) Urine Appearance SLIGHTLY CLOUDY (CLEAR) Urine pH 5.0 (5-6) Ur Specific [place] 1.020 (1.005-1.025) Urine Protein TRACE (Negative) Urine Ketones NEGATIVE (NEGATIVE) Urine Blood TRACE NON-HEM (0-5) Benja/ul Urine Nitrite NEGATIVE (NEGATIVE) Urine Bilirubin NEGATIVE (NEGATIVE) Urine Urobilinogen NORMAL (0-1) mg/dL Ur Leukocyte Esterase 1+ (NEGATIVE) Urine Microscopic RBC 2-5 (0-2) /HPF Urine Microscopic WBC 5-10 (0-5) /HPF Ur Epithelial Cells FEW (FEW) /HPF Urine Bacteria MODERATE (NEGATIVE) /HPF Urine Culture Reflexed YES (NO) Urine Glucose NEGATIVE (NEGATIVE) mg/dL Specimen Received 05/23/17 0500 - Progress Progress: improved Progress Note: 05/23/17 05:11 ADMINISTERED IV NORMAL SALINE BOLUS 1 LITER/HR, BENADRYL 50MG, SOLUMEDROL 125MG , PEPCID 20MG IV, EPINEPHRINE 0.3MG IM 1.1000 Counseled pt/family regarding: lab results, diagnosis, need for follow-up - Departure Time of Disposition: 07:00 Departure Disposition: Extended Care Facility Clinical Impression: ALLERGIC REACTION, URINARY TRACT INFECTION Condition: Stable Critical Care Time: No Referrals: KARMEN NAVARRO MD [Primary Care Provider] - Additional Instructions: ANTIBIOTIC BACTRIM DS TWICE DAILY FOR 10 DAYS. TAKE OVER THE COUNTER BENADRYL 50MG EVERY 4 HOURS FOR ITCHING NEEDED. PREDNISONE 20MG, 2 TABLETS DAILY FOR 5 DAYS. CONSULT YOUR PRIMARY CARE PROVIDER FOR FOLLOWUP IN 5-6 DAYS. RETURN TO EMERGENCY ROOM FOR ITCHING. Prescriptions: Prednisone 20 mg [Deltasone 20 mg] 2 tab PO DAILY #10 tablet Smz/Tmp Ds Tablet [Bactrim Ds Tablet] 1 udtab PO BID #20 tablet
[2017-05-23 05:28] VITALS: O2SAT 100
[2017-05-23 05:30] LABS: Granulocyte Absolute (ANC) 7.89 (1.4-6.9); Hematocrit 44.9 % (35-47); Hemoglobin 15.2 gm/dl (12.0-16.0); Mean Cell Volume 86.8 fl (78-100); Mean Corpuscular Hemoglobin 29.4 pg (26-32); Mean Corpuscular Hgb Concent. 33.9 g/dl (32-36); Mean Platelet Volume 9.6 fl (6-9.5); Platelet Count 326 K/mm3 (150-450); Red Blood Count 5.17 M/mm3 (4.1-5.4); Red Cell Distribution Width 14.4 % (11.5-14.0); White Blood Count 10.3 K/mm3 (4.0-10.5)
[2017-05-23 05:49] LABS: ALBUMIN 4.1 g/dL (3.5-5.0); ALKALINE PHOSPHATASE 51 U/L (38-126); ANION GAP 14.9 MEQ/L (5-15); BLOOD UREA NITROGEN 11 mg/dL (7-17); CHLORIDE 107 mmol/L (98-107); Calcium 9.9 mg/dL (8.4-10.2); Carbon Dioxide 21 mmol/L (22-30); Creatinine 1 0.98 mg/dL (0.52-1.04); Glucose 106 mg/dL (74-106); Potassium 3.7 mmol/L (3.5-5.1); SGOT/AST 19 U/L (14-36); SGPT/ALT 23 U/L (0-35); SODIUM 139 mmol/L (137-145)
[2017-05-23 05:57] LABS: Appearance SLIGHTLY CLOUDY (CLEAR); Bacteria MODERATE /HPF (NEGATIVE); Bilirubin NEGATIVE (NEGATIVE); Blood TRACE NON-HEM Ery/ul (0-5); Epithelial Cells FEW /HPF (FEW); Glucose NEGATIVE (NEGATIVE); Ketones NEGATIVE (NEGATIVE); Leukocyte Esterase 1+ (NEGATIVE); Nitrite NEGATIVE (NEGATIVE); Protein,Urine Dip TRACE (Negative); Urobilinogen NORMAL mg/dL (0-1)
[2017-05-23] MEDS ORDERED: BACTRIM DS TABLET PO STA (06:10)
[2017-05-23] MEDS ORDERED: BACTRIM DS TABLET PO ONE (06:15)
[2017-05-23 06:21] LABS: Lymphocytes 20 % (24-44); Monocyte 4 % (0.0-12.0); Neutrophils 76 % (36.0-66.0); Platelet Estimate NORMAL (NORMAL); Total Cells Counted 100
[2017-05-23 06:49] VITALS: PULSE 102
[2017-05-23 06:56] VITALS: BP 109/67
== END 2017-05-23 07:26 | disposition home or self-care (01) ==
LOC: ED 04:31
DX: T78.40XA Allergy, unspecified, initial encounter (principal); N39.0 Urinary tract infection, site not specified; Z79.899 Other long term (current) drug therapy
CPT/HCPCS: 36415; 80053; 81000; 85025; 87086; 96360; 96361; 96372; 96374; 96375; 99284; J0171; J1200; J2930; A9270-GY